=== PATIENT | male | born 1960 ===

== ENCOUNTER 2019-10-24 08:10 | Day surgery (SDC) | payer BC ==
[~2019-10-24 08:10] MED LIST: Acetaminophen TAB* 325 MG PO PRN; Buffered Lidocaine 1% SYRIN* 1 ML/SYRINGE INTRADERM ONE
[2019-10-24] MEDS ORDERED: Neomycin/Polymy/Dex OPTH.SUSP* MAXITROL 0.1% 5 ML ONE (09:32)
[2019-10-24] MEDS ORDERED: Cyclopentolate 1% OPTH.SOL* 2 ML BTL ONE (09:32)
[2019-10-24] MEDS ORDERED: acetaZOLAMIDE TAB* 250 MG ONE (09:32)
[2019-10-24] MEDS ORDERED: Ketorolac 0.5% OPHTH (NF) 0.5 % 5 ML BTL ONE (09:32)
[2019-10-24] MEDS ORDERED: Povidone Iodine 5% OPTH* 30 ML BTL ONE (09:32)
[2019-10-24] MEDS ORDERED: Lidocaine 2% w/ EPI 1:200,000* 20 ML SDV VIAL ONE (09:32)
[2019-10-24] MEDS ORDERED: Phenylephrine OPHTH SOL 2.5%* 2 ML ONE (09:32)
[2019-10-24] MEDS ORDERED: Lidocaine 1% MPF ** 5 ML VIAL ONE (09:32)
[2019-10-24] MEDS ORDERED: Proparacaine 0.5% OPHTH.SOL* 15 ML BTL ONE (09:32)
[2019-10-24] MEDS ORDERED: Midazolam* 1 MG/ML 2 ML VIAL (2 MG) ONE (09:37)
[2019-10-24] MEDS ORDERED: fentaNYL* 50 MCG/ML 2 ML VIAL (100 MCG VIAL) ONE (09:37)
[2019-10-24 11:05] VITALS: BP 112/74
--- NOTE | 2019-10-24 11:38 | OP ---
DATE OF OPERATION: 10/24/2019. DATE OF : 1960. SURGEON: Robson Moreno M.D. PREOPERATIVE DIAGNOSIS: Cataract right eye. POSTOPERATIVE DIAGNOSIS: Cataract right eye. OPERATIVE PROCEDURE: Extracapsular cataract extraction with intraocular lens implant right eye. PROCEDURE: The patient was brought to the operating room after being given 1/2% Alcaine with epineph rine drops in the preoperative area. The eye was prepped and draped in the usual sterile fashion. S terile drape and eyelid speculum were placed. Again, topical 1/2% Alcaine with epinephrine was given . A paracentesis incision was made at the 9 o'clock position with the No.75 blade. Clear cornea inc ision 2.2 x 2.2-mm was created at the 12 o'clock position starting at the anterior limbus using the 2 .2-mm keratome. The anterior chamber was irrigated with 0.4 mL of 1% non-preservative intracameral l idocaine and filled with DisCoVisc. A capsulorrhexis was completed using the cystotome and the Utrat a forceps. Hydrodissection was performed with balanced salt solution. The lens nucleus was removed w ith the Phacoemulsification handpiece without incident. Cortex was removed with the irrigation-aspir ation handpiece. The capsular bag was re-inflated using DisCoVisc and an [id number] implant was inser ramu with the shooter. The irrigation-aspiration handpiece was used to remove all residual DisCoVisc. The eye was refilled with balanced salt solution and the wound checked and found to be watertight. Topical Maxitrol drops were given. [id number]/[facility] #: [id number]
== END 2019-10-24 10:50 | disposition home or self-care (01) ==
LOC: OREAST 08:10
PROVIDERS: ATTEND Specialist
DX: H25.811 Combined forms of age-related cataract, right eye (principal); H01.021 Squamous blepharitis right upper eyelid; H01.024 Squamous blepharitis left upper eyelid; H01.022 Squamous blepharitis right lower eyelid; H01.025 Squamous blepharitis left lower eyelid; E78.00 Pure hypercholesterolemia, unspecified; E78.5 Hyperlipidemia, unspecified; M19.90 Unspecified osteoarthritis, unspecified site; F17.210 Nicotine dependence, cigarettes, uncomplicated
CPT/HCPCS: A9270-GY; J2250; J3010; V2632